=== PATIENT | male | born 1960 | race Caucasian/White ===

== ENCOUNTER 2016-03-23 09:31 | Emergency (ER) | payer OTHER ==
[2016-03-23 09:52] VITALS: RESP 18; TEMP 98
[2016-03-23] MEDS ORDERED: IPRATROPIUM/ALBUTEROL 3 ML DEYVIAL IH ONE (10:14)
[2016-03-23] MEDS ORDERED: ALBUTEROL 3 ML DEYVIAL ONE (10:22)
--- NOTE | 2016-03-23 11:01 | UCPHY ---
H & P Time Seen by Provider: 03/23/16 09:38 Patient Type: New HPI/ROS: 56-year-old male presents complaining of cough for several days keeping him up all night. He has a history of polymyalgia rheumatica and is on prednisone 6 mg per day. He has also had some nasal congestion. He states he has been trying everything [id number] and nothing is working Review of systems as per HPI General no fever no chills no weakness HEENT no eye pain no eye discharge. No eye redness, no sore throat Respiratory positive cold symptoms positive cough, no shortness of breath Cardiac no chest pain, no peripheral edema GI no abdominal pain, no diarrhea, no constipation, no nausea, no vomiting no flank pain, no hematuria, no dysuria Musculoskeletal no myalgias, no joint pain Heme no easy bruising, no easy bleeding Endo no polyuria, no polydipsia Skin no rashes, no pruritus Neuro no syncope, no dizziness, no headaches Psych is no suicidal ideation, no homicidal ideation Past Medical/Surgical History: Polymyalgia rheumatica Social History: No alcohol no drugs Smoking Status: Never smoked Physical Exam: 56-year-old male with coarse cough, sounds bronchospastic Alert and oriented nontoxic appearance, no acute distress afebrile Atraumatic normocephalic Extraocular muscles intact, anicteric Nares mild yellowish discharge Oropharynx mild erythema no tonsillar swelling no exudate no uvular deviation, tolerating own secretions Neck supple no lymphadenopathy Lungs clear to auscultation bilaterally, no wheezing Heart regular rate and rhythm Abdomen normoactive bowel sounds soft nontender Extremities no cyanosis clubbing or edema Skin no rash Constitutional: Initial Vital Signs Temperature (C) 36.6 C 03/23/16 09:45 Heart Rate 92 03/23/16 09:45 Respiratory Rate 18 03/23/16 09:45 Blood Pressure 168/104 H 03/23/16 09:45 O2 Sat (%) 100 03/23/16 09:45 O2 Delivery Mode Room Air Allergies/Adverse Reactions: Penicillins Allergy (Verified 03/23/16 09:44) Home Medications: Medication Instructions Recorded ASA/Acetaminophn/Mag/Alh/Caff 03/23/16 AZITHROMYCIN [Z-PACK] 250 mg PO DAILY #6 tab 03/23/16 Acetaminophen with Codeine 1 each PO DAILY PRN #10 tablet 03/23/16 [Acetaminophen-Cod #4 Tablet] Albuterol [Ventolin Hfa Inhaler] 2 puffs IH Q4 PRN #1 mdi 03/23/16 Alendronate Sodium 03/23/16 Benzonatate [Tessalon Pearles (RX)] 200 mg PO TID PRN #30 cap 03/23/16 Prednisone 03/23/16 Vit A,C,D3,E/[place]-3/Ala/Dha 03/23/16 Medical Decision Making - Diagnostics Imaging: Chest x-ray consistent with bronchitis, poor inspiration cannot rule out early pneumonia ED Course/Re-evaluation: Patient seen and evaluated for very irritating cough of several days, keeping him up at night Chest x-ray consistent with bronchitis Differential diagnosis Bronchitis, URI, pneumonia, cold Physical exam lungs clear to auscultation however cough sounds bronchospastic Given a DuoNeb with marked improvement in cough Impression Bronchitis with bronchospasm Plan Prednisone burst A Zithromax Cough suppressant-Tessalon Perles, Tylenol with codeine at bedtime Albuterol inhaler 2 puffs q.4 hours p.r.n. severe cough Follow up with primary care physician - Data Points Laboratory Results: 03/23/16 10:20 Influenza Typ A,B (DFA) NEGATIVE FOR FLU (NEGATIVE) Medications Given: Discontinued Medications Albuterol/Ipratropium (Duoneb) 3 ml IH EDNOW ONE Stop: 03/23/16 10:15 Last Admin: 03/23/16 10:24 Dose: 3 ml Departure - Departure Disposition: Home, Routine, Self-Care Clinical Impression: Bronchitis, acute, with bronchospasm Condition: Good Instructions: Bronchospasm (ED), Acute Bronchitis (ED) Additional Instructions: Your symptoms in her chest x-ray are consistent with bronchitis with bronchospasm, or a bronchitis causing a reactive airway. I am sending you home with the following medications/prescriptions for Albuterol inhaler, 2 puffs every 4 hours as needed for severe cough or wheezing Tessalon Perles, 2 pills, every 8 hours as needed for cough Tylenol No. 4, take 1 at bedtime to help suppress cough and to get some sleep Azithromycin, an antibiotic which covers bronchitis and community-acquired pneumonia I advise you to take a short burst of prednisone on top of your daily dose of 6 mg. I would like you to take a total of 46 mg to day, 36 mg on Sunday 26 mg on Sunday 16 mg on Sunday Then I would advise you to go back to her daily dose of 6 mg. Return to the emergency department and/or urgent care as needed for high fever difficulty breathing or if you are having uncontrolled vomiting and unable to keep her medicines down. Referrals: David Engel [Primary Care Provider] - As per Instructions Prescriptions: Acetaminophen with Codeine [Acetaminophen-Cod #4 Tablet] 1 each PO DAILY PRN # 10 tablet PRN Reason: Cough, Severe Benzonatate [Tessalon Pearles (RX)] 200 mg PO TID PRN #30 cap PRN Reason: Cough, Moderate Albuterol [Ventolin Hfa Inhaler] 2 puffs IH Q4 PRN #1 mdi PRN Reason: Cough, Moderate AZITHROMYCIN [Z-PACK] 250 mg PO DAILY #6 tab - PQRS PQRS Measurement: na
--- NOTE | 2016-03-23 11:17 | DX ---
AP and lateral chest HISTORY: Flulike symptoms for 4 days. COMPARISON: PA and lateral chest June 04, 2014. FINDINGS: There is mild peribronchial thickening with increased elevation of the right hemidiaphragm. Indistinct basilar opacities are noted bilaterally. There is no pneumothorax or pleural effusion. Mi ld cardiomegaly is present. Degenerative change is present in the spine. IMPRESSION: Hypoventilatory chest with bronchitis and indistinct basilar opacities that could be rela greg to atelectasis or less likely early pneumonia.
[2016-03-23 11:47] VITALS: BP 147/68; PULSE 78; O2SAT 97
== END 2016-03-23 11:46 | disposition home or self-care (01) ==
LOC: CED 09:31
DX: J20.9 Acute bronchitis, unspecified (principal); M35.3 Polymyalgia rheumatica
CPT/HCPCS: 71020-PO; 87400-PO; 99203-PO; G0463-PO

== ENCOUNTER 2017-01-14 09:39 | Emergency (ER) | payer OTHER ==
[2017-01-14 09:44] VITALS: BP 146/84; PULSE 79; RESP 18; TEMP 98.1; O2SAT 96
[2017-01-14 10:23] LABS: % IMMATURE GRANULYOCYTES 1.2 % (0.0-1.1); ADD DIFF? NO; ADD MORPH? NO; ADD SCAN? NO; ATYPICAL LYMPHOCYTE FLAG 0 (0-99); FRAGMENT RBC FLAG 0 (0-99); HEMATOCRIT 44.7 % (40.0-51.0); HEMOGLOBIN 15.8 g/dL (13.7-17.5); LEFT SHIFT FLG 10 (0-99); LIPEMIA HEMOLYSIS FLAG 90 (0-99); MEAN CELL HEMOGLOBIN 30.7 pg (27.9-34.1); MEAN CELL HEMOGLOBIN CONCENTR. 35.3 g/dL (32.4-36.7); PLATELET CLUMPS FLAG 30 (0-99); PLATELET COUNT 196 10^3/uL (150-400); RED BLOOD CELL COUNT 5.14 10^6/uL (4.40-6.38)
[2017-01-14] MEDS ORDERED: ONDANSETRON DISINTEGRATING 4 MG TAB PO ONE (10:24)
[2017-01-14] MEDS ORDERED: NS 1,000 ML IV ONE (10:24)
[2017-01-14] MEDS ORDERED: KETOROLAC 30 MG/1 ML SDV IVP ONE (10:24)
[2017-01-14 10:29] LABS: ANION GAP 15 mEq/L (8-16); CALCIUM 9.3 mg/dL (8.5-10.4); CARBON DIOXIDE 24 mEq/l (22-31); CHLORIDE 104 mEq/L (97-110); GLOMERULAR FILTRATION RATE > 60; GLUCOSE 106 mg/dL (70-100); POTASSIUM 4.2 mEq/L (3.5-5.2); SODIUM 143 mEq/L (134-144)
--- NOTE | 2017-01-14 10:29 | EDPHY ---
H & P Time Seen by Provider: 01/14/17 09:51 HPI/ROS: CHIEF COMPLAINT: Abdominal pain HISTORY OF PRESENT ILLNESS: Patient is a 56-year-old male with a history of polymyalgia rheumatica who presents to the emergency department with right lower quadrant pain. The patient states his pain started at around 8:00 a.m.. It gradually worsened. He describes it as moderate. It does not radiate. He tried to eat toast and became very nauseated. He had no episodes of vomiting. No diarrhea. No dysuria frequency. No hematuria. He denies fevers or chills. No flank pain. REVIEW OF SYSTEMS: My complete review of systems is negative except as mentioned in the HPI. Past Medical/Surgical History: Polymyalgia rheumatica Past surgical history: Orthopedic surgery Social history: The patient does not smoke Smoking Status: Never smoked Physical Exam: Vitals noted. Afebrile GENERAL: Mild acute distress, alert. HEENT: Eyes normal to inspection, normal pharynx, no signs of dehydration. NECK: No thyromegaly, no lymphadenopathy, supple. RESPIRATORY: Clear to auscultation bilaterally, no rales, rhonchi or wheezing. CVS: Regular rate and rhythm, no rubs, murmurs, or gallops. ABDOMEN: Soft, right lower quadrant tenderness to palpation with no rebound or guarding, nondistended, no organomegaly. BACK: Normal to inspection, no CVA tenderness. SKIN: Normal color, no rash, warm, dry. No pallor. EXTREMITIES: No pedal edema, no calf tenderness, no Homans sign or cords, no joint swelling. NEURO/PSYCH: Alert and oriented, normal mood and affect, normal motor sensory exam. Constitutional: Initial Vital Signs Temperature (C) 36.7 C 01/14/17 09:41 Heart Rate 79 01/14/17 09:41 Respiratory Rate 18 01/14/17 09:41 Blood Pressure 146/84 H 01/14/17 09:41 O2 Sat (%) 96 01/14/17 09:41 O2 Delivery Mode Room Air Allergies/Adverse Reactions: Penicillins Allergy (Verified 03/23/16 09:44) Home Medications: Medication Instructions Recorded ASA/Acetaminophn/Mag/Alh/Caff 03/23/16 AZITHROMYCIN [Z-PACK] 250 mg PO DAILY #6 tab 03/23/16 Acetaminophen with Codeine 1 each PO DAILY PRN #10 tablet 03/23/16 [Acetaminophen-Cod #4 Tablet] Albuterol [Ventolin Hfa Inhaler] 2 puffs IH Q4 PRN #1 mdi 03/23/16 Alendronate Sodium 03/23/16 Benzonatate [Tessalon Pearles (RX)] 200 mg PO TID PRN #30 cap 03/23/16 Prednisone 03/23/16 Vit A,C,D3,E/[place]-3/Ala/Dha 03/23/16 Hydrocodone/APAP 5/325 [[place] 1 - 2 tab PO Q4 #13 tab 01/14/17 5/325 (RX)] Tamsulosin HCl [Flomax] 0.4 mg PO DAILY #4 cap 01/14/17 Medical Decision Making - Diagnostics Imaging Results: Imaging Impressions Abdomen CT 01/14/17 10:25 Impression: 1 mm calculus at the right UVJ or within the urinary bladder, with mild associated hydronephrosis. Results called to Dr. Munson at 11:00 AM. ED Course/Re-evaluation: In the emergency department I discussed possible etiologies with the patient. I answered all his questions. IV was placed. He is given normal saline 1 L IV for hydration. He was given fentanyl 100 mcg IV for pain. He was given Zofran 4 mg IV for nausea. CT of the abdomen pelvis: Please refer the dictated report by Dr. Johnathon Maloney. The patient has mild hydronephrosis on the right. Dr. Maloney feels he recently passed a stone. Appendix appears normal. No other acute disease noted. I discussed the result with the patient. Answered all his questions. He was feeling better. His abdomen is soft, nontender nondistended. The patient was given Toradol 30 mg IV prior to discharge. He was given warnings prior to leaving. He will follow up with worsening symptoms. Differential Diagnosis: My differential includes but is not limited to appendicitis, ureterolithiasis, diverticulitis, small-bowel obstruction, perforation, hernia, incarcerated hernia - Data Points Laboratory Results: Laboratory Results 01/14/17 10:00 01/14/17 10:00 01/14/17 01/14/17 01/14/17 10:00 10:00 09:59 WBC 8.51 10^3/uL 10^3/uL (3.80-9.50) RBC 5.14 10^6/uL 10^6/uL (4.40-6.38) Hgb 15.8 g/dL g/dL (13.7-17.5) POC Hgb 16.0 gm/dL gm/dL (13.7-17.5) Hct 44.7 % % (40.0-51.0) POC Hct 47 % % (40-51) MCV 87.0 fL fL (81.5-99.8) MCH 30.7 pg pg (27.9-34.1) MCHC 35.3 g/dL g/dL (32.4-36.7) RDW 13.0 % % (11.5-15.2) Plt Count 196 10^3/uL 10^3/uL (150-400) MPV 10.0 fL fL (8.7-11.7) Neut % (Auto) 68.5 % % (39.3-74.2) Lymph % (Auto) 16.6 % % (15.0-45.0) [place] % (Auto) 12.0 % % (4.5-13.0) Eos % (Auto) 1.1 % % (0.6-7.6) Baso % (Auto) 0.6 % % (0.3-1.7) Nucleat RBC Rel Count 0.0 % % (0.0-0.2) Absolute Neuts (auto) 5.84 10^3/uL 10^3/uL (1.70-6.50) Absolute Lymphs (auto) 1.41 10^3/uL 10^3/uL (1.00-3.00) Absolute Monos (auto) 1.02 10^3/uL H 10^3/uL (0.30-0.80) Absolute Eos (auto) 0.09 10^3/uL 10^3/uL (0.03-0.40) Absolute Basos (auto) 0.05 10^3/uL 10^3/uL (0.02-0.10) Absolute Nucleated RBC 0.00 10^3/uL 10^3/uL (0-0.01) Immature Gran % 1.2 % H % (0.0-1.1) Immature Gran # 0.10 10^3/uL 10^3/uL (0.00-0.10) POC Sodium 141 mEq/L mEq/L (134-144) Sodium 143 mEq/L mEq/L (134-144) POC Potassium 3.9 mEq/L mEq/L (3.3-5.0) Potassium 4.2 mEq/L mEq/L (3.5-5.2) POC Chloride 104 mEq/L mEq/L (97-110) Chloride 104 mEq/L mEq/L (97-110) Carbon Dioxide 24 mEq/l mEq/l (22-31) Anion Gap 15 mEq/L mEq/L (8-16) POC BUN 23 mg/dL mg/dL (7-23) BUN 22 mg/dL mg/dL (7-23) Creatinine 1.0 mg/dL mg/dL (0.7-1.3) POC Creatinine 1.2 mg/dL mg/dL (0.7-1.3) Estimated GFR > 60 Glucose 106 mg/dL H mg/dL (70-100) POC Glucose 108 mg/dL H mg/dL (70-100) Calcium 9.3 mg/dL mg/dL (8.5-10.4) Medications Given: Discontinued Medications Sodium Chloride (Ns) 1,000 mls @ 0 mls/hr IV EDNOW ONE; Wide Open PRN Reason: Protocol Stop: 01/14/17 10:25 Last Admin: 01/14/17 10:40 Dose: 1,000 mls Ketorolac Tromethamine (Toradol) 30 mg IVP EDNOW ONE Stop: 01/14/17 10:25 Last Admin: 01/14/17 10:39 Dose: 30 mg Ondansetron HCl (Zofran Odt) 4 mg PO EDNOW ONE Stop: 01/14/17 10:25 Last Admin: 01/14/17 10:39 Dose: Not Given Ondansetron HCl (Zofran) 4 mg IVP EDNOW ONE Stop: 01/14/17 10:36 Last Admin: 01/14/17 10:40 Dose: 4 mg Point of Care Test Results: 01/14/17 09:59 POC Sodium 141 POC Potassium 3.9 POC Chloride 104 POC BUN 23 POC Creatinine 1.2 POC Glucose 108 H Departure - Departure Disposition: Home, Routine, Self-Care Clinical Impression: Kidney stone on right side Abdominal pain Qualifiers: Abdominal location: right lower quadrant Qualified Code(s): R10.31 - Right lower quadrant pain Condition: Good Instructions: Kidney Stones (ED), Acute Abdominal Pain (ED) Additional Instructions: Use a strainer for your urine. Need close follow-up with Urology. You been given contact information. If you developed increasing abdominal pain fever or any other concerns return to the emergency department. Referrals: David Engel [Primary Care Provider] - 3-4 days, if not improved Ariella Calderón MD [Medical Doctor] - 5-7 days, call for appt. Prescriptions: Hydrocodone/APAP 5/325 [[place] 5/325 (RX)] 1 - 2 tab PO Q4 #13 tab Tamsulosin HCl [Flomax] 0.4 mg PO DAILY #4 cap
[2017-01-14] MEDS ORDERED: ONDANSETRON 4 MG/2 ML VIAL ONE (10:30)
[2017-01-14] MEDS ORDERED: IOPAMIDOL (ISOVUE-300) 100 ML BTL ONE (10:32)
[2017-01-14] MEDS ORDERED: ONDANSETRON 4 MG/2 ML VIAL IVP ONE (10:35)
[2017-01-14] MEDS ORDERED: TAMSULOSIN HCL 0.4 MG CAP PO ONE (12:46)
== END 2017-01-14 13:21 | disposition home or self-care (01) ==
DX: N20.0 Calculus of kidney (principal); E86.9 Volume depletion, unspecified
CPT/HCPCS: 82947-QW; 96374; J1885; J2405; Q9967

== ENCOUNTER → 2017-11-15 | Outpatient (CLI) | payer OTHER | LOC: FIMAGING 11:35 | PROVIDERS: ATTEND Internal Medicine Rheumatology | DX: Z13.820 Encounter for screening for osteoporosis (principal); M85.89 Other specified disorders of bone density and structure, multiple sites; Z79.52 Long term (current) use of systemic steroids ==